=== PATIENT | male | born 1930 | race Caucasian/White ===

== ENCOUNTER 2020-07-17 08:30 | Day surgery (SDC) | payer MEDICARE ==
[~2020-07-17] VITALS: Ht 167.6 cm; Wt 66.6 kg
[~2020-07-17 08:30] MED LIST: ALBU90OI61 INH; Antivert12.5 MG PO; CYPR4 PO; Flovent Diskus50 MCG; LATA.005SO; LATA.005SO BOTHEYES; SILD50TA PO; TIMO.25OPS; Zofran Odt4 MG SL
[2020-09-05] MEDS ORDERED: PRAV20 PO (14:38)
== END 2020-07-17 10:51 | disposition home or self-care (01) ==
LOC: ORSCSDS 08:30
PROVIDERS: Internal Medicine Gastroenterology
PROC: 0D757ZZ Dilation of Esophagus, Via Natural or Artificial Opening (ICD-10-PCS; 2020-07-17)
PROC: 0DB68ZX Excision of Stomach, Via Natural or Artificial Opening Endoscopic, Diagnostic (ICD-10-PCS; principal; 2020-07-17 09:45)
DX: R13.10 Dysphagia, unspecified (principal); K31.7 Polyp of stomach and duodenum; R05 Cough; K22.2 Esophageal obstruction; K22.8 Other specified diseases of esophagus; I25.10 Atherosclerotic heart disease of native coronary artery without angina pectoris; J44.9 Chronic obstructive pulmonary disease, unspecified; I48.91 Unspecified atrial fibrillation; Z79.899 Other long term (current) drug therapy
CPT/HCPCS: 88305; J2704; J7120

== ENCOUNTER 2020-07-19 11:46 | Inpatient (IN) | payer OTHER, MEDICARE ==
[~2020-07-19] VITALS: Ht 167.6 cm; Wt 66.4 kg
[2020-07-19 12:17] LABS: BASOPHILS ABSOLUTE AUTO 0.03 K/mm3 (0.00-0.23); BASOPHILS PERCENT AUTO 0 % (0-2); EOSINOPHILS ABSOLUTE AUTO 0.14 K/mm3 (0.00-0.68); EOSINOPHILS PERCENT AUTO 2 % (0-6); Hematocrit 40.1 % (37.0-53.0); Hemoglobin 13.1 g/dL (13.5-17.5); IMMATURE GRAN ABSOLUTE AUTO 0.01 K/mm3 (0.00-0.10); IMMATURE GRAN PERCENT AUTO 0 % (0-1); LYMPHOCYTES ABSOLUTE AUTO 2.05 K/mm3 (0.84-5.20); LYMPHOCYTES PERCENT AUTO 27 % (21-46); MONOCYTES ABSOLUTE AUTO 0.64 K/mm3 (0.16-1.47); MONOCYTES PERCENT AUTO 8 % (4-13); Mean Corpuscular HGB 31.3 pg (26.0-34.0); Mean Corpuscular HGB Conc 32.7 g/dL (31.5-36.5); Mean Corpuscular Volume 96 fL (80-100); Mean Platelet Volume 10.4 fL (9.1-12.4); NEUTROPHILS ABSOLUTE AUTO 4.71 K/mm3 (1.96-9.15); NEUTROPHILS PERCENT AUTO 62 % (41-73); Platelet Count 159 K/mm3 (150-400); RDW Coefficient Variation 13.7 % (11.7-14.2); RDW Standard Deviation 48.2 fL (35.1-46.3); Red Blood Cell Count 4.19 M/mm3 (4.30-5.90); White Blood Cell Count 7.58 K/mm3 (4.00-11.30)
[2020-07-19 12:35] LABS: Alanine Aminotransfer (ALT/SGP 27 U/L (12-78); Albumin, Blood 3.5 g/dL (3.4-5.0); Albumin/Globulin Ratio 1.1 (0.8-1.8); Alk Phos 73 U/L (50-136); Anion Gap 3 mmol/L (6-16); Aspartate Aminotrans (AST/SGOT 24 U/L (12-37); Bilirubin, Total 1.1 mg/dL (0.1-1.0); Blood Urea Nitrogen 15 mg/dL (8-24); Bun/Creatinine Ratio 15.6 (12.0-20.0); CO2, Blood 29 mmol/L (21-32); Calcium, Blood 9.1 mg/dL (8.5-10.1); Chloride, Blood 109 mmol/L (98-108); Creatinine, Blood 0.96 mg/dL (0.60-1.20); Globulin, Blood 3.2 g/dL (2.2-4.0); Glomerular Filtration Rate >60 (60-); Glucose, Blood 145 mg/dL (70-99); Potassium, Blood 4.3 mmol/L (3.5-5.5); Sodium, Blood 141 mmol/L (136-145); Total Protein, Blood 6.7 g/dL (6.4-8.2)
[2020-07-19] MEDS ORDERED: PRAVASTATIN SOD10 MG PO (14:37)
[2020-07-19] MEDS ORDERED: OMEP20ER (14:38)
[2020-07-19] MEDS ORDERED: FLUT.05NI (14:38)
[2020-07-19] MEDS ORDERED: POTCHL10ER PO (14:39)
[2020-07-19] MEDS ORDERED: FURO40 PO (14:40)
[2020-07-19] MEDS ORDERED: WARF1 PO (14:40)
[2020-07-19] MEDS ORDERED: LISI5 PO (14:41)
[2020-07-19] MEDS ORDERED: Aspir 8181 MG PO (14:41)
[2020-07-19 14:49] LABS: International Normalized Ratio 1.12; Prothrombin Time Results 11.9 Sec (9.7-11.5)
[2020-07-19] MEDS ORDERED: TIMO.5OPSO BOTHEYES (15:38)
[2020-07-19] MEDS ORDERED: LATA.005SO BOTHEYES (15:39)
[2020-07-19] MEDS ORDERED: VITAMIN D31000 UNI1 PO (15:40)
[2020-07-19] MEDS ORDERED: CENTRUM SILVER1 EAC2 PO (15:40)
[2020-07-19] MEDS ORDERED: VITAMIN E400 UNI1 PO (15:40)
[2020-07-19] MEDS ORDERED: CIDAFLEX TABLE1 EAC1 PO (15:41)
[2020-07-19] MEDS ORDERED: CALCIUM CIT 311 EAC7 PO (16:13)
--- NOTE | 2020-07-19 17:22 | NUR ---
PT ARRIVED AT 1725 AOX4 AND COOPERATIVE OF CARE. PT DENIES ANY PAIN AT THIS TIME AND IS ABLE TO AMBULATE TO RESTROOM WELL. CALL LIGHT IS WITHIN REACH AND WILL CONTINUE TO MONITOR.
--- NOTE | 2020-07-20 03:39 | NUR ---
CLERK TYPIST SUMMARY A/O X4, SBA TO BATHROOM. DENIES PAIN OR SOB. STEADY GAIT, EQUAL HAND CONSTRUCTION MANAGER BILATERALLY, NO FACIAL DROOP NOTED. SPEECH IS APPROPRIATE. TELE RUNNING SINUS IN THE 70'S. NO ACUTE CHANGES AT THIS TIME. BED IN LOWEST POSITION WITH CALL LIGHT IN REACH. WILL CONTINUE TO MONITOR AND REPORT TO ONCOMING RN.
[2020-07-20 04:52] LABS: BASOPHILS ABSOLUTE AUTO 0.04 K/mm3 (0.00-0.23); BASOPHILS PERCENT AUTO 1 % (0-2); EOSINOPHILS ABSOLUTE AUTO 0.17 K/mm3 (0.00-0.68); EOSINOPHILS PERCENT AUTO 2 % (0-6); Hematocrit 38.6 % (37.0-53.0); Hemoglobin 12.9 g/dL (13.5-17.5); IMMATURE GRAN ABSOLUTE AUTO 0.02 K/mm3 (0.00-0.10); IMMATURE GRAN PERCENT AUTO 0 % (0-1); LYMPHOCYTES ABSOLUTE AUTO 2.26 K/mm3 (0.84-5.20); LYMPHOCYTES PERCENT AUTO 28 % (21-46); MONOCYTES ABSOLUTE AUTO 0.77 K/mm3 (0.16-1.47); MONOCYTES PERCENT AUTO 9 % (4-13); Mean Corpuscular HGB 31.2 pg (26.0-34.0); Mean Corpuscular HGB Conc 33.4 g/dL (31.5-36.5); Mean Corpuscular Volume 94 fL (80-100); Mean Platelet Volume 10.9 fL (9.1-12.4); NEUTROPHILS ABSOLUTE AUTO 4.97 K/mm3 (1.96-9.15); NEUTROPHILS PERCENT AUTO 60 % (41-73); Platelet Count 148 K/mm3 (150-400); RDW Coefficient Variation 13.4 % (11.7-14.2); RDW Standard Deviation 46.6 fL (35.1-46.3); Red Blood Cell Count 4.13 M/mm3 (4.30-5.90); White Blood Cell Count 8.23 K/mm3 (4.00-11.30)
[2020-07-20 05:06] LABS: International Normalized Ratio 1.24; Prothrombin Time Results 13.1 Sec (9.7-11.5)
[2020-07-20 05:08] LABS: Anion Gap 5 mmol/L (6-16); Blood Urea Nitrogen 19 mg/dL (8-24); Bun/Creatinine Ratio 17.3 (12.0-20.0); CO2, Blood 30 mmol/L (21-32); Chloride, Blood 108 mmol/L (98-108); Glomerular Filtration Rate >60 (60-); Glucose, Blood 89 mg/dL (70-99); Sodium, Blood 143 mmol/L (136-145)
--- NOTE | 2020-07-20 14:40 | NUR ---
AT 1255 PT'S CALLED PAINTER ORDNANCE AND NOTIFIED STAFF PT HAD STARTED TO SLURR HIS SPEACH MUCH MORE. THIS CLINICAL BIOCHEMICAL GENETICIST CHECKED ON PT IMMEDIATELY AND PT HAD INCREASED L SIDE FACIAL DROOP AND HE WAS DELAYED IN HIS RESPONSE TO LIFT HIS L FOOT. DR CALDERA WAS NOTIFIED IMMEDIATELY AND IT WAS DECIDED TO ADD MORE IMAGING AND KEEP PT ANOTHER NIGHT FOR OBSERVATION.
--- NOTE | 2020-07-20 17:33 | NUR ---
PT AOX4 AND COOPERATIVE OF CARE. PT'S EARLIER L SIDE DROOPING OF FACES HAS IMPROVED AND PT IS NOT DELAYED IN LIFTING L LEG NOW. IS AT BEDSIDE AND PT IS TALKING BETTER WITH LESS SLURRING OF HIS WORDS. PT IS A STAND BY TO RESTROOM AND CALLS APPROPRIATELY. CALL LIGHT IS WITHIN REACH WILL CONTINUE TO MONITOR.
--- NOTE | 2020-07-20 19:30 | NUR ---
PHYSICIAN NOTIFY PATHOLOGY SPECIALIST PROVIDER NOTIFIED OF RECENT CT HEAD/NECK RESULTS. PROVIDER AT BEDSIDE TO ASSESS AND IN CONTACT WITH NEUROLOGIST. ADVISED TO CONTINUE TO MONITOR AT THIS TIME.
--- NOTE | 2020-07-21 03:49 | NUR ---
ESTATE PLANNING DIRECTOR SUMMARY A/OX4, SBA TO BATHROOM. L. SIDED FACIAL DROOP NOTED, SLIGHTLY SLURRED SPEECH. PLEASE SEE PREVIOUS NOTES REGARDING IMAGING RESULTS. DENIES PAIN OR SOB. NO ACUTE NEEDS AT THIS TIME. BED IN LOWEST POSITION WITH CALL LIGHT IN REACH. WILL CONTINUE TO MONITOR AND REPORT TO ONCOMING RN.
[2020-07-21 05:39] LABS: International Normalized Ratio 1.79; Prothrombin Time Results 18.5 Sec (9.7-11.5)
--- NOTE | 2020-07-21 17:26 | NUR ---
PT AOX4 AND COOPERATIVE OF CARE. PT HAS HAD A HARDER TIME TODAY. L SIDE HAS HAD INCREASED WEAKNESS AND FACIAL DROOPING. PT NEEDED MORE SUPERVISION AND USE OF A WALKER TO BE STABLE FOR RESTROOM. DR CESPEDES AND ADAM CLEARY HAD A MEETING WITH AND PT TODAY IN ROOM DISCUSSING PLAN OF CARE FOR PT. PT IS BEING MONITORED CLOSELY AND HAS CALL LIGHT WITHIN REACH. WILL CONTINUE TO MONITOR.
--- NOTE | 2020-07-21 19:37 | NUR ---
Met with and pt physican and phone confrence with pt son. Review of his current medical condition and needs. spoke with son on th phone about getting a polst and AD on his father and both parents. Will follow up with further advance care planning.
--- NOTE | 2020-07-21 23:22 | NUR ---
NEURO CHECK DONE AT , LEFT SIDE WEAKNESS CONTINUES. SPEECH APPROPRIATE. ALERT AND ORIENTED. AGREED TO USE CALL LIGHT FOR OUT OF BED NEEDS. CALL LIGHT IN REACH
--- NOTE | 2020-07-22 04:16 | NUR ---
SHIFT SUMMARY HAS BEEN RESTING QUIETLY WITH NO VOICED COMPLAINTS THIS SHIFT SINCE HS. NEURO CHECKS DONE ABOUT EVERY 4 HRS - SEE DOCUMENTATIONS. LEFT SIDE REMAINS WEAKER THAN THAT OF THE RIGHT. LEFT HAND STRUCTURAL IRONWORKER STRONGER THAN NOTED AT SHIFT COMMENCE. DENIED LOSS OF FEELING IN ALL 4 EXT. CALL LIGHT IN REACH
[2020-07-22 04:57] LABS: International Normalized Ratio 2.08; Prothrombin Time Results 21.4 Sec (9.7-11.5)
[2020-07-22] MEDS ORDERED: ASPI81CH PO (12:47)
[2020-07-22] MEDS ORDERED: ATOR40TA PO (12:49)
--- NOTE | 2020-07-22 14:00 | NUR ---
DISCHARGE SUMMARY PT AxOx4. PLEASANT AND COOPERATIVE WITH CARE. PT DISCHARGING TODAY TO HOME WITH . DC INSTRUCTIONS DISCUSSED WITH PT, INCLUDING DC MEDS AND FOLLOW UP APPTS. PT VERBALIZES UNDERSTANDING. DENIES ANY FURTHER QUESTIONS AT THIS TIME. VITALS REVIEWED. PT REPORTS FEELING MUCH BETTER AND STRONGER TODAY. GOOD APPETITE. SHOWER TAKEN TODAY. SAFELY ESCORTED OUT VIA WC WITH PROGRAM CLINICIAN.
[2020-09-05] MEDS ORDERED: PRAV20 PO (14:38)
== END 2020-07-22 14:05 | disposition home or self-care (01) | DRG 64 ==
LOC: ER 11:46 → ERHOLD 11:47 → MEDS 11:47
PROVIDERS: Emergency Medicine; Family Medicine; ADMIT Hospitalist
DX: I63.231 Cerebral infarction due to unspecified occlusion or stenosis of right carotid arteries (principal); I77.71 Dissection of carotid artery; G81.94 Hemiplegia, unspecified affecting left nondominant side; I10 Essential (primary) hypertension; E04.1 Nontoxic single thyroid nodule; I48.91 Unspecified atrial fibrillation; Z79.01 Long term (current) use of anticoagulants; R47.81 Slurred speech; G47.33 Obstructive sleep apnea (adult) (pediatric); R29.810 Facial weakness
CPT/HCPCS: 36415; 70450; 70496; 70498; 71045; 80048; 80053; 84484; 85025; 85610; 93005; 93010; 93306; 96372; 97110; 97112; 97161; 97166; 99285-25; A9270; G0378; J1650; Q9967

== ENCOUNTER 2020-08-30 23:13 | Emergency (ER) | payer MEDICARE ==
[~2020-08-30] VITALS: Ht 167.6 cm; Wt 65.8 kg
[~2020-08-30 23:13] MED LIST changes: +ASPI81CH PO; +ATOR40TA PO; +Aspir 8181 MG PO; +CALCIUM CIT 311 EAC7 PO; +CENTRUM SILVER1 EAC2 PO; +CIDAFLEX TABLE1 EAC1 PO; +FLUT.05NI; +FURO40 PO; +LISI5 PO; +OMEP20ER; +POTCHL10ER PO; +PRAVASTATIN SOD10 MG PO; +TIMO.5OPSO BOTHEYES; +VITAMIN D31000 UNI1 PO; +VITAMIN E400 UNI1 PO; +WARF1 PO
[2020-08-30 23:48] LABS: BASOPHILS ABSOLUTE AUTO 0.04 K/mm3 (0.00-0.23); BASOPHILS PERCENT AUTO 1 % (0-2); EOSINOPHILS ABSOLUTE AUTO 0.14 K/mm3 (0.00-0.68); EOSINOPHILS PERCENT AUTO 2 % (0-6); IMMATURE GRAN ABSOLUTE AUTO 0.01 K/mm3 (0.00-0.10); IMMATURE GRAN PERCENT AUTO 0 % (0-1); LYMPHOCYTES PERCENT AUTO 32 % (21-46); MONOCYTES ABSOLUTE AUTO 0.65 K/mm3 (0.16-1.47); MONOCYTES PERCENT AUTO 9 % (4-13); Mean Corpuscular HGB 31.3 pg (26.0-34.0); Mean Corpuscular HGB Conc 33.3 g/dL (31.5-36.5); Mean Corpuscular Volume 94 fL (80-100); Mean Platelet Volume 10.4 fL (9.1-12.4); NEUTROPHILS ABSOLUTE AUTO 3.95 K/mm3 (1.96-9.15); NEUTROPHILS PERCENT AUTO 56 % (41-73); Platelet Count 188 K/mm3 (150-400); RDW Coefficient Variation 13.8 % (11.7-14.2); RDW Standard Deviation 47.8 fL (35.1-46.3); Red Blood Cell Count 3.83 M/mm3 (4.30-5.90); White Blood Cell Count 7.09 K/mm3 (4.00-11.30)
[2020-08-31 00:09] LABS: Alanine Aminotransfer (ALT/SGP 22 U/L (12-78); Albumin, Blood 3.4 g/dL (3.4-5.0); Albumin/Globulin Ratio 1.1 (0.8-1.8); Alk Phos 80 U/L (50-136); Anion Gap 4 mmol/L (6-16); Aspartate Aminotrans (AST/SGOT 20 U/L (12-37); Bilirubin, Total 0.4 mg/dL (0.1-1.0); Blood Urea Nitrogen 16 mg/dL (8-24); Bun/Creatinine Ratio 13.8 (12.0-20.0); CO2, Blood 28 mmol/L (21-32); Calcium, Blood 8.5 mg/dL (8.5-10.1); Chloride, Blood 110 mmol/L (98-108); Creatinine, Blood 1.16 mg/dL (0.60-1.20); Glomerular Filtration Rate >60 (60-); Glucose, Blood 126 mg/dL (70-99); Magnesium, Blood 2.1 mg/dL (1.6-2.4); Potassium, Blood 3.8 mmol/L (3.5-5.5); Sodium, Blood 142 mmol/L (136-145); Total Protein, Blood 6.4 g/dL (6.4-8.2); Troponin I <0.015 ng/mL (0.000-0.040)
[2020-08-31 00:18] LABS: International Normalized Ratio 2.69; Prothrombin Time Results 27.2 Sec (9.7-11.5)
[2020-09-05] MEDS ORDERED: PRAV20 PO (14:38)
== END 2020-08-31 01:14 | disposition home or self-care (01) ==
LOC: ER 23:13
PROVIDERS: Emergency Medicine
DX: G45.9 Transient cerebral ischemic attack, unspecified (principal); R53.1 Weakness; Z79.899 Other long term (current) drug therapy
CPT/HCPCS: 70450; 80053; 83735; 84484; 85025; 85610; 93005; 93010; 99285-25

== ENCOUNTER 2020-09-08 07:03 | Day surgery (SDC) | payer MEDICARE ==
[~2020-09-08] VITALS: Ht 167.6 cm; Wt 68.0 kg
[~2020-09-08 07:03] MED LIST changes: +PRAV20 PO
[2020-09-08 08:07] LABS: International Normalized Ratio 2.89; Prothrombin Time Results 29.4 Sec (9.7-11.5)
--- NOTE | 2020-09-08 09:58 | NUR ---
PT RETURNED TO RECOVERY ROOM IN RECLINER. LACW PACERMAKER SITE WITH PRESSURE DRESSING IN PLACE STABLE WITH NO HEMATOMA, NO BLEEDING. PT DENIES CHEST PAIN. CALL LIGHT IN REACH.
[2020-09-08] MEDS ORDERED: CEPH500 PO (10:20)
--- NOTE | 2020-09-08 14:01 | NUR ---
DISCHARGE INSTRUCTIONS REVIEWED ALL QUESTIONS ANSWERED. NO CHANGES TO LACW SITE; ARM SLING HAS BEEN IN PLACE SINCE ARRIVAL TO RECOVERY ROOM.
--- NOTE | 2020-09-08 15:20 | NUR ---
DRESSED FOR DISCHARGE. LEFT UPPER CHEST INCISION DRESSING DRY AND INTACT.
--- NOTE | 2020-09-08 15:52 | NUR ---
IV REMOVED INTACT. 2X2,COBAN AND MANUAL PRESSURE APPLIED
--- NOTE | 2020-09-08 16:05 | NUR ---
DR. GRIMES HERE DISCUSSED DISCHARGE INSTRUCTIONS, WARFAIN AND PRESSURE DRESSING REMOVAL.
--- NOTE | 2020-09-08 16:30 | NUR ---
DISCHARGED HOME VIA WHEELCHAIR. DRIVING.
== END 2020-09-08 16:30 | disposition home or self-care (01) ==
LOC: MHTC 07:03
PROVIDERS: Internal Medicine Cardiovascular Disease
DX: I49.5 Sick sinus syndrome (principal); I44.2 Atrioventricular block, complete; I48.20 Chronic atrial fibrillation, unspecified; I27.20 Pulmonary hypertension, unspecified; G47.33 Obstructive sleep apnea (adult) (pediatric); I65.21 Occlusion and stenosis of right carotid artery; I25.10 Atherosclerotic heart disease of native coronary artery without angina pectoris; Z88.5 Allergy status to narcotic agent; Z79.01 Long term (current) use of anticoagulants; Z98.890 Other specified postprocedural states; Z86.73 Personal history of transient ischemic attack (TIA), and cerebral infarction without residual deficits
CPT/HCPCS: 33207; 71046; 76937; 85610; 99152; 99153; C1786; C1894; C1898; J0690; J1644; J2250; J3010; J7030; J7040